=== PATIENT | female | born 1965 | race American Indian/Alaskan Native ===

== ENCOUNTER 2016-04-18 11:05 | Outpatient (CLI) | payer BC ==
--- NOTE | 2016-04-18 12:44 | Ultrasound Report ---
Left mammogram and left breast ultrasound: Compression cc and lateral views were obtained confirming the presence of an elongated and moderately well defined density in the inferior left breast. No calcifications noted. Maximum dimension approximately 2.4 cm. Ultrasound of the breast in the 8:00 location approximately 6 cm from the nipple demonstrates a slightly lobulated but well-defined and homogeneously hypoechoic mass with a maximum dimension of 1.9 cm. No significant internal flow with color imaging. Axilla images negative. No other findings. 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 Recommendation: The findings do appear benign however due to the patient's age and recent development I am recommending an ultrasound-guided biopsy for confirmation. The findings and recommendations have been discussed with the patient and she has been instructed to call you. BI-RADS CATEGORY: 4 = Suspicious ACR BI-RADS MAMMOGRAPHIC CODES: 0 = Needs additional imaging evaluation; 1 = Negative; 2 = Benign; 3 = Probably benign; 4 = Suspicious; 5 = Malignant; 6 = Known biopsy-proven malignancy COMMENT: 1. Dense breast tissue, i.e., adenosis, fibrocystic changes, etc., may obscure an underlying neoplasm. 2. Approximately 10% of cancers are not detected with mammography. 3. A negative mammography report should not delay biopsy if a clinically suspicious mass is present.
== END 2016-04-18 11:06 | disposition home or self-care (01) ==
LOC: SPVWC 11:05
PROVIDERS: ATTEND Internal Medicine
DX: N64.89 Other specified disorders of breast (principal)
CPT/HCPCS: 76642; G0206

== ENCOUNTER 2016-04-29 09:23 | Outpatient (CLI) | payer BC ==
--- NOTE | 2016-04-29 10:35 | History and Physical Report ---
History of Present Illness Date of examination: 04/29/16 Chief complaint: lt. breast mass
--- NOTE | 2016-04-29 10:37 | Procedure Note ---
Date of procedure: 04/29/16 Pre-op diagnosis: lt breast mass Post-op diagnosis: same Procedure: u/s guided bx Findings: solid tissue Anesthesia: local Surgeon: MIGUEL ALVES Estimated blood loss: none Pathology: list (lt breast tissue) Specimen disposition: to lab Condition: stable Disposition: same day
--- NOTE | 2016-04-29 10:41 | Ultrasound Report ---
Left breast biopsy, marker placement, left mammogram: Ultrasound was used for guidance. The patient presents with a hypodensity in the 8:00 position of the left breast. A lateral approach was utilized. The skin was cleansed with Betadine and 1% lidocaine used local anesthesia. A 13-gauge guide was introduced through which a 14-gauge disposable Bard biopsy spring-loaded none was utilized to take several sampled under ultrasound guidance. A marker was left in place. A followup mammogram confirm positioning the marker in the targeted density. There were no apparent patient or procedural complications. Patient was given verbal followup instructions and discharged.
== END 2016-04-29 09:24 | disposition home or self-care (01) ==
LOC: SPVWC 09:23
PROVIDERS: ATTEND Internal Medicine
DX: N63 Unspecified lump in breast (principal)
CPT/HCPCS: 19083; 88305; A4648; G0206

== ENCOUNTER 2019-05-23 08:33 | Outpatient (CLI) | payer BC ==
--- NOTE | 2019-05-23 09:32 | Mammography Report ---
DIGITAL SCREENING MAMMOGRAM WITH CAD, 05/23/2019 INDICATION: Routine screening mammography. History of a left benign ultrasound guided needle biopsy . Pathology: Benign breast tissue with nonproliferative fibrocystic changes and stromal fibros is. TECHNIQUE: Digital bilateral 2D mammography was obtained in the craniocaudal and mediolateral obliq ue projections. This examination was interpreted with the benefit of Computer-Aided Detection analysi s. COMPARISON: 02/17/2016 and 04/29/2016 FINDINGS: Breast Density: The breasts are heterogeneously dense, which may obscure small masses. There is no evidence of new mass, suspicious calcifications or architectural distortion in either jaspreet ast. A left lower inner biopsy clip with a smaller mass with indistinct margins at the clip. IMPRESSION: No mammographic evidence of malignancy. Follow up recommendation: Routine yearly BI-RADS Category 2: Benign. A "normal" or negative report should not discourage follow up or biopsy of a clinically significant f inding. A written summary of these findings will be mailed to the patient. The patient will be entered into a mammography reporting system which will generate a reminder letter for the patient's next appointmen t at the appropriate interval. [employer] recommends yearly mammograms starting at age 40 and continuing as l rayna as a woman is in good health. Breast MRI is recommended for women with an approximate 20-25% or greater lifetime risk of breast cancer, including women with a strong family history of breast or ova leatha cancer or who have been treated for Hodgkin's disease. Signer Name: Randy Joseph MD Signed: 05/23/2019 9:27 AM Workstation Name: [id number]
== END 2019-05-23 08:34 | disposition home or self-care (01) ==
LOC: SPVWC 08:33
PROVIDERS: ATTEND Internal Medicine
DX: Z12.31 Encounter for screening mammogram for malignant neoplasm of breast (principal)
CPT/HCPCS: 77067